=== PATIENT | male | born 1945 | race Caucasian/White ===

== ENCOUNTER 2016-07-16 07:32 | Day surgery (SDC) | payer OTHER ==
[2016-07-16] MEDS ORDERED: BOTULINUM TOXIN A 100 UNITS VIAL IM ONE (08:00)
[2016-07-16 08:11] VITALS: BMI 23.5
[2016-07-16] MEDS ORDERED: METOCLOPRAMIDE HCL INJECTION 10 MG/2 ML VIAL ONE (09:16)
[2016-07-16 09:29] VITALS: TEMP 98.2
[2016-07-16 09:41] VITALS: PULSE 70
[2016-07-16 11:28] VITALS: BP 130/77
== END 2016-07-16 11:00 | disposition home or self-care (01) ==
LOC: JASU-ENDO 07:32
PROVIDERS: ATTEND Internal Medicine Gastroenterology
PROC: 3E0G8GC Introduction of Other Therapeutic Substance into Upper GI, Via Natural or Artificial Opening Endoscopic (ICD-10-PCS; principal; 2016-07-16 08:00)
DX: K31.1 Adult hypertrophic pyloric stenosis (principal); C16.0 Malignant neoplasm of cardia; R11.10 Vomiting, unspecified; R63.4 Abnormal weight loss; Z98.0 Intestinal bypass and anastomosis status
CPT/HCPCS: J0585